=== PATIENT | male | born 1990 | race Caucasian/White ===

== ENCOUNTER → 2020-04-28 | Outpatient (CLI) | payer BC ==
--- NOTE | 2020-04-28 12:11 | US ---
EXAMINATION TYPE: US liver DATE OF EXAM: 04/28/2020 COMPARISON: NONE CLINICAL HISTORY: R94.5 Abnormal results of liver function studies. EXAM MEASUREMENTS: Liver Length: 18.1 cm and the liver length may be under represented Gallbladder Wall: 0.1 cm CBD: 0.2 cm Right Kidney: 10.6 x 5.3 x 5.3 cm Pancreas: visualized portions wnl, limited by overlying midline bowel gas Liver: Likely enlarged without discrete mass Gallbladder: wnl Evidence for sonographic Walsh's sign: no CBD: visualized portions wnl, limited by overlying bowel gas Right Kidney: wnl There is no ascites. IMPRESSION: Hepatomegaly suspected, there are some limitations to the exam
[2020-04-28 16:09] LABS: Hepatitis A Antibody IgM Non-Reactive (Non-Reactive); Hepatitis B Core IgM Non-Reactive (Non-Reactive); Hepatitis B Surface Antigen Non-Reactive (Non-Reactive); Hepatitis C IgG Antibody Non-Reactive (Non-Reactive)
== END | disposition home or self-care (01) ==
LOC: RADUSWWP 08:20
PROVIDERS: ATTEND Family Medicine
DX: R94.5 Abnormal results of liver function studies (principal)
CPT/HCPCS: 76705; 80074